=== PATIENT | female | born 1965 | race American Indian/Alaskan Native ===

== ENCOUNTER 2016-11-18 10:10 | Outpatient (CLI) | payer OTHER ==
--- NOTE | 2016-11-18 11:02 | XRay Report ---
LUMBOSACRAL SPINE, 3 VIEWS: History: Back pain Findings: Normal bone mineralization. Normal height and alignment of the lumbar vertebra. Minimal degenerative endplate changes are identified at all levels. Minimal disc space narrowing at L5-S1. Minimal facet arthropathy at the lowest 3 levels. There is no evidence for fracture, subluxation or bone lesion. Impression: Minimal to mild lumbar spondylosis. This is probably within normal limits for this persons age.
== END 2016-11-18 10:11 | disposition home or self-care (01) ==
LOC: XRAY 10:10
PROVIDERS: ATTEND Internal Medicine
DX: M47.896 Other spondylosis, lumbar region (principal); G56.00 Carpal tunnel syndrome, unspecified upper limb; M12.88 Other specific arthropathies, not elsewhere classified, other specified site
CPT/HCPCS: 72100

== ENCOUNTER 2017-07-13 10:58 | Outpatient (CLI) | payer OTHER ==
--- NOTE | 2017-07-13 11:41 | Mammography Report ---
Screening mammogram: The patient is post breast reduction surgery. Breast pattern is mostly fatty replaced bilaterally. In the superomedial right breast there is a focal area of fibroglandular density containing a collection of calcifications adjacent to an area of circumscribed lucency. The complex measures approximately 15 mm. Scattered other areas of fibroglandular distortion are noted in both breasts consistent with reduction surgery. No other findings noted. CAD used. Impression: Post reduction surgical changes. The right asymmetry most likely is related to the surgery but needs confirmation. Recommendation: Prior mammograms are being requested for comparison before final recommendation. BI-RADS CATEGORY: 0 = Needs additional imaging evaluation ACR BI-RADS MAMMOGRAPHIC CODES: 0 = Needs additional imaging evaluation; 1 = Negative; 2 = Benign; 3 = Probably benign; 4 = Suspicious; 5 = Malignant; 6 = Known biopsy-proven malignancy COMMENT: 1. Dense breast tissue, i.e., adenosis, fibrocystic changes, etc., may obscure an underlying neoplasm. 2. Approximately 10% of cancers are not detected with mammography. 3. A negative mammography report should not delay biopsy if a clinically suspicious mass is present.
== END 2017-07-13 10:59 | disposition home or self-care (01) ==
LOC: SPVWC 10:58
PROVIDERS: ATTEND Internal Medicine
DX: Z12.31 Encounter for screening mammogram for malignant neoplasm of breast (principal); Z98.890 Other specified postprocedural states
CPT/HCPCS: 77067

== ENCOUNTER 2017-11-18 09:04 | Outpatient (CLI) | payer OTHER ==
--- NOTE | 2017-11-18 11:08 | Mammography Report ---
RIGHT DIGITAL DIAGNOSTIC MAMMOGRAM : 11/18/17 09:04:00 CLINICAL: Recalled for asymmetry. History of bilateral reduction mammoplasty. COMPARISON:07/13/17 screening FINDINGS: Lateralmedial and spot magnification LM, MLO and CC views were performed. Near-complete effacement of the inner posterior asymmetry with central dystrophic benign calcifications. No suspicious findings. IMPRESSION: Benign postsurgical fat necrosis. Recommend routine mammographic screening. BI-RADS CATEGORY: 2 - - Benign ACR BI-RADS MAMMOGRAPHIC CODES: 0 = Needs additional imaging evaluation; 1 = Negative; 2 = Benign; 3 = Probably benign; 4 = Suspicious; 5 = Malignant; 6 = Known biopsy-proven malignancy COMMENT: 1. Dense breast tissue, i.e., adenosis, fibrocystic changes, etc., may obscure an underlying neoplasm. 2. Approximately 10% of cancers are not detected with mammography. 3. A negative mammography report should not delay biopsy if a clinically suspicious mass is present. COMMENT: Patient follow-up letters are generated via our [employer] application.
== END 2017-11-18 09:05 | disposition home or self-care (01) ==
LOC: SPVWC 09:04
PROVIDERS: ATTEND Internal Medicine
DX: N64.89 Other specified disorders of breast (principal); Z98.890 Other specified postprocedural states

== ENCOUNTER 2020-06-11 09:05 | Outpatient (CLI) | payer OTHER ==
--- NOTE | 2020-06-11 12:58 | Mammography Report ---
DIGITAL SCREENING MAMMOGRAM WITH CAD, 06/11/2020 INDICATION: Routine screening mammography. TECHNIQUE: Digital bilateral 2D mammography was obtained in the craniocaudal and mediolateral obliq ue projections. This examination was interpreted with the benefit of Computer-Aided Detection analysi s. COMPARISON: 07/13/2017. FINDINGS: Breast Density: The breasts are almost entirely fatty. There is no evidence of dominant mass, suspicious calcifications or architectural distortion in eithe r breast. Benign-appearing right-sided calcification remains. IMPRESSION: Follow up recommendation: Routine yearly BI-RADS Category 2: Benign. A "normal" or negative report should not discourage follow up or biopsy of a clinically significant f inding. A written summary of these findings will be mailed to the patient. The patient will be entered into a mammography reporting system which will generate a reminder letter for the patient's next appointmen t at the appropriate interval. The [employer] recommends yearly mammograms starting at age 40 and continuing as l christine as a woman is in good health. Breast MRI is recommended for women with an approximate 20-25% or greater lifetime risk of breast cancer, including women with a strong family history of breast or ova haylee cancer or who have been treated for Hodgkin's disease. Signer Name: Etienne Hsu MD Signed: 06/11/2020 12:53 PM Workstation Name: [id number])
== END 2020-06-11 09:06 | disposition home or self-care (01) ==
LOC: SPVWC 09:05
PROVIDERS: ATTEND Internal Medicine
DX: Z12.31 Encounter for screening mammogram for malignant neoplasm of breast (principal)
CPT/HCPCS: 77067